=== PATIENT | male | born 1995 | race Caucasian/White ===

== ENCOUNTER 2017-04-22 16:35 | Emergency (ER) | payer OTHER ==
[~2017-04-22] VITALS: Ht 182.9 cm; Wt 83.0 kg
[2017-04-22 16:41] VITALS: Ht 182.9 cm; Wt 83.0 kg
--- NOTE | 2017-04-22 17:23 | ERD ---
ER Documentation Chief Complaint Date/Time DATE: 04/22/17 TIME: 17:16 Chief Complaint RIGHT EAR LOBE LAC HPI This pleasant 21-year-old male patient reports that he was running while recording himself on snapshot and ran into a closed glass door. Patient states that he hit the right side of his head did not lose consciousness has a laceration to his right ear and superficial abrasions on his neck. Patient reports his last tetanus was in 10 years. Denies nausea, vomiting, dizziness, change in vision or behavior. ROS All systems reviewed and are negative except as per history of present illness. PMhx/Soc Medical and Surgical Hx: pt denies Medical Hx, pt denies Surgical Hx Hx Alcohol Use: Yes (socially) Hx Substance Use: No Hx Tobacco Use: No Smoking Status: Never smoker Physical Exam Vitals Vital Signs Date Time Temp Pulse Resp B/P Pulse Ox O2 Delivery O2 Flow Rate FiO2 04/22/17 18:57 98.1 71 18 127/83 99 04/22/17 16:41 97.8 54 18 131/69 99 Vitals stable, triage notes reviewed Physical Exam Const: Well-nourished, well-appearing, well-hydrated in no acute distress Head: Atraumatic, no scalp laceration or forehead laceration, no hematoma or abrasion. Eyes: Normal Conjunctiva, PERRLA, EOMI ENT: Right external ear has a 2 cm laceration along superior pinna and scalp. Neck: Right neck abrasion Resp: Respirations even and unlabored, no respiratory distress Cardio: Abd: Skin: Back: Ext: No cyanosis, or edema Neur: Awake and alert Psych: Normal Mood and Affect Results 24 hrs Current Medications Medications (Trade) Dose Ordered Sig/Blaze Route PRN Reason Start Time Stop Time Status Last Admin Dose Admin Ibuprofen (Motrin) 400 mg ONCE ONCE PO 04/22/17 17:30 04/22/17 17:31 DC 04/22/17 17:17 Procedures/MDM This pleasant 21-year-old male patient presents to emergency department for laceration repair. Patient ran into a close glass door while running in recording himself with his phone. Patient was unaware of the glass was closed and did not realize it until it was too late. This was not an intentional injury. Patient denies loss of consciousness or change in behavior, subdural hematoma, skull fracture or subarachnoid bleed is not suspected. Laceration Repair by me: Anesthesia: 2% lidocaine locally Location: Right scalp/head laceration Tendon/Joint/Nerves: No injury Foreign body: None detected after copious irrigation and exploration Technique: 6 simple Interrupted Sutures, Complexity: No subcutaneous sutures/mucosal repair/edge excision Post Closure Length: 2 cm Patient's bleeding was easily controlled in the department and there is no indication of anemia..No evidence of compartment syndrome, neurologic injury, vascular injury, open joint, tendon laceration, or foreign body. Patient is appropriate for outpatient follow up.48 hour wound check. Scar minimization instructions given. Change dressing over the wound at least once a day. If dressing becomes wet change immediately. Return to emergency department for wound evaluation in 48 hours use [id number] antibiotic ointment twice a day 3 days only. Observe 1 daily for signs of infection which include increased pain, increased redness especially redness spreading towards your heart, post drainage or increased swelling. If there are any of these signs or if you are not sure return as soon as possible. Return in 7 days from original injury for suture removal. I feel the patient is stable for discharge at this time. I have discussed results, examination findings, the treatment plan with the patient and family present prior to discharge. Indications for emergent reevaluation, side effects of medication were also discussed. All questions were answered. Patient verbalizes understanding and agrees with plan of care. Departure Diagnosis: Primary Impression: Laceration Patient Instructions: Laceration (Sure+Close) Additional Instructions: Thank you for for coming to [facility] for your care today. Please ask your nurse or provider if you have questions about your care today and do not leave until all your questions have been answered. Please use any medications given as directed and follow-up with your doctor (or the doctor you were referred to) in the next 2-3 days. If you do not have a primary care doctor you may follow up at the [facility] (listed below). You may also use motrin and tylenol as needed for fever and/or pain unless instructed otherwise by your provider or nurse. Indications for more urgent follow-up have been discussed, but you may return to the Emergency Department at ANY time for any worrisome or worsening symptoms. If you have abdominal pain, please know that no test or exam you received is perfect and you should follow up within 8 hours for continued pain. If you had any imaging studies today, such as an X-Ray or CT Scan, these studies will be reviewed later by a radiologist. You will be called if there are important findings that were not identified today, so make sure the contact information you provided at registration is correct. If you received any narcotic pain control medicine today, such as Vicodin, Morphine or Dilaudid, your coordination and judgment may be affected for a number of hours. Please do not drive or operate heavy machinery, and you may want someone to assist you at home. If you were given a prescription for narcotic medication, be aware that it is very addictive- use sparingly and only if necessary. ISAAK PAGE Apr 22, 2017 17:23
[2017-04-22] MEDS ORDERED: IBUPROFEN 200 MG TAB PO ONE (17:30)
[2017-04-22 18:57] VITALS: BP 127/83; PULSE 71; RESP 18; TEMP 98.1
== END 2017-04-22 18:57 | disposition home or self-care (01) ==
LOC: FTE 16:35
DX: S01.311A Laceration without foreign body of right ear, initial encounter (principal); S01.01XA Laceration without foreign body of scalp, initial encounter; W25.XXXA Contact with sharp glass, initial encounter; Y92.9 Unspecified place or not applicable

== ENCOUNTER 2017-05-11 14:19 | Emergency (ER) | payer OTHER ==
[~2017-05-11] VITALS: Ht 180.3 cm; Wt 89.0 kg
[2017-05-11 14:23] VITALS: Ht 180.3 cm; Wt 89.0 kg
--- NOTE | 2017-05-11 15:26 | ERD ---
ER Documentation Chief Complaint Date/Time DATE: 05/11/17 TIME: 15:11 Chief Complaint Patient here for suture removal HPI 21-year-old male patient with no significant past medical history presents to the ED for a suture removal. Patient reports that he was running while recording himself on a snap shot and ran into a close glass door. States that he hit the right side of his head and did not lose consciousness. Reports that he sustained a laceration to his right ear. Denies any chest pain, shortness of breath, abdominal pain, nausea, vomiting, loss of sensation, loss of hearing , headache, weakness, dizziness. ROS All systems reviewed and are negative except as per history of present illness. Allergies Allergies: Coded Allergies: No Known Allergy (Unverified , 05/11/17) PMhx/Soc Medical and Surgical Hx: pt denies Medical Hx, pt denies Surgical Hx Hx Alcohol Use: Yes (socially) Hx Substance Use: No Hx Tobacco Use: No Smoking Status: Never smoker Physical Exam Vitals Vital Signs Date Time Temp Pulse Resp B/P Pulse Ox O2 Delivery O2 Flow Rate FiO2 05/11/17 14:23 97.0 60 17 115/55 98 Physical Exam Const: Irz-iid-builswbzy, well-nourished. In no acute distress. Head: Atraumatic, normocephalic Eyes: Normal Conjunctiva without injection. No purulent discharge. PERRL. EOMI ENT: Normal external ear. Ear canal without erythema. Tympanic membrane pearly delgado without effusion or bulging. Nasal canal clear with normal turbinates. 5 sutures noted on the right ear between the helix and the scalp. Moist oropharynx without tonsillar exudates. Non-erythematous pharynx. Uvula midline. No drooling. No trismus. Neck: Full range of motion. No meningismus. No cervical lymphadenopathy. Resp: Clear to auscultation bilaterally. No wheezing, rhonchi, rales, or crackles. No accessory muscle use. No retractions. Cardio: Regular rate and rhythm. No murmurs, rubs or gallops. Abd: Soft, non tender, non distended. Normal bowel sounds. No palpable masses. No rebound tenderness. No guarding. Skin: No petechiae or rashes. No erythema. No edema. No purulent discharge. No bleeding noted. Back: No midline tenderness. No CVA tenderness. Ext: No cyanosis, or edema. Neur: Awake and alert. Psych: Normal Mood and Affect Procedures/MDM 21-year-old male patient with no significant past medical history presents to the ED complaining of a suture removal between the helix and the scalp. Patient is afebrile and nontoxic-appearing. Patient has normal vital signs. Patient gave consent. 5 sutures were removed without difficulty. Low suspicion for intracranial bleed, deep space infection, sepsis, subarachnoid hemorrhage, meningitis, TIA, stroke, seizures, or other emergent conditions. Follow up with primary care physician in 1-2 days. Instructed patient to return to the ED sooner for any worsening symptoms. Patient's questions were answered. Patient understood and agreed with discharge plan. Patient discharged stable. Departure Diagnosis: Primary Impression: Encounter for removal of sutures Condition: Stable Patient Instructions: Suture Removal, No Complication Referrals: COMM[facility]ITY CL[facility] YOU HAVE RECEIVED A MEDICAL SCREENING EXAM AND THE RESULTS INDICATE THAT YOU DO NOT HAVE A CONDITION THAT REQUIRES URGENT TREATMENT IN THE EMERGENCY DEPARTMENT. FURTHER EVALUATION AND TREATMENT OF YOUR CONDITION CAN WAIT UNTIL YOU ARE SEEN IN YOUR DOCTORS OFFICE WITHIN THE NEXT 1-2 DAYS. IT IS YOUR RESPONSIBILITY TO MAKE AN APPOINTMENT FOR [facility]UP [facility]ARE. IF YOU HAVE A PRIMARY DOCTOR --you should call your primary doctor and schedule an appointment IF YOU DO NOT HAVE A PRIMARY DOCTOR YOU CAN CALL OUR PHYSICIAN REFERRAL HOTLINE AT IF YOU CAN NOT AFFORD TO SEE A PHYSICIAN YOU CAN CHOSE FROM THE FOLLOWING [facility] [address] [facility]. [facility] [address] [facility]. [facility] [address] [facility] [facility] [address]. [facility] [address] [facility]. [facility]. [address] [facility]. [facility] YOU HAVE RECEIVED A MEDICAL SCREENING EXAM AND THE RESULTS INDICATE THAT YOU DO NOT HAVE A CONDITION THAT REQUIRES URGENT TREATMENT IN THE EMERGENCY DEPARTMENT. FURTHER EVALUATION AND TREATMENT OF YOUR CONDITION CAN WAIT UNTIL YOU ARE SEEN IN YOUR DOCTORS OFFICE WITHIN THE NEXT 1-2 DAYS. IT IS YOUR RESPONSIBILITY TO MAKE AN APPOINTMENT FOR [facility]. IF YOU HAVE A PRIMARY DOCTOR --you should call your primary doctor and schedule and appointment IF YOU DO NOT HAVE A PRIMARY DOCTOR YOU CAN CALL OUR PHYSICIAN REFERRAL HOTLINE AT . IF YOU CAN NOT AFFORD TO SEE A PHYSICIAN YOU CAN CHOSE FROM THE FOLLOWING [facility] INSTITUTIONS: [facility] [address] [place] [address] [facility] [address] [place], [place] [id number] [place] [address] [address] [place] [address] [facility]ENT [facility]/SPECIALTIES Additional Instructions: Call your primary care doctor TOMORROW for an appointment during the next 2-3 days.See the doctor sooner or return here if your condition worsens before your appointment time. NATHANAEL XIONG PA-C May 11, 2017 15:23
== END 2017-05-11 15:24 | disposition home or self-care (01) ==
LOC: FTE 14:19
DX: Z48.02 Encounter for removal of sutures (principal)
CPT/HCPCS: 99281